=== PATIENT | female | born 1965 | race Caucasian/White ===

== ENCOUNTER 2017-11-14 11:58 | Emergency (ER) | payer OTHER ==
[2017-11-14] MEDS ORDERED: Ondansetron ODT 4 MG TAB ONE (12:15)
[2017-11-14 12:39] LABS: Bilirubin Negative (Negative); Blood, Urine Trace (Negative); Clarity Cloudy (Clear); Glucose, Urine (Dipstick) Negative (Negative); Leukocyte Large (Negative); Nitrite Negative (Negative); Protein, Urine (Dipstick) Negative (Neg-Trace); Urobilinogen 0.2 mg/dL (0.2-1.0)
[2017-11-14 12:39] LABS: #Lymphocytes 1.2 thou/uL (1.20-3.40); #Monocytes 0.6 thou/uL (0.11-0.59); #Neutrophils 6.8 thou/uL (1.40-6.50); %Basophils 0.5 % (0.0-1.0); %Eosinophils 0.3 % (0.0-10.0); %Lymphocytes 14.2 % (21.0-51.0); %Monocytes 6.8 % (0.0-10.0); %Neutrophils 78.3 % (42.0-75.0); Hemoglobin 13.4 g/dL (12.0-16.0); Mean Corpuscular HGB CONC 35.6 g/dL (32.0-36.0); Mean Corpuscular Hemoglobin 29.3 pg (27.0-31.0); Mean Corpuscular Volume 82.4 fL (78.0-98.0); Mean Platelet Volume 5.8 fL (7.4-10.4); Platelet Count 97 thou/uL (130-400); RBC Distribution Width 11.7 % (11.5-14.5); Red Blood Cell (RBC) Count 4.59 mill/uL (4.20-5.40); White Blood Cell (WBC) Count 8.7 thou/uL (4.8-10.8)
[2017-11-14 12:40] LABS: Bacteria/HPF 1+ HPF (None Seen); Crystals/HPF None Seen HPF (Negative); Hyaline Casts/LPF NONE SEEN LPF (0-3 Hyaline); Other Casts/LPF None Seen LPF (0-3 Hyaline); Oval Fat Bodies/HPF None Seen HPF (None Seen); Renal Epithelial None Seen HPF (0-3); Sperm/HPF None Seen HPF (None Seen); Squamous Epithelial 0-3 HPF (0-3); Transitional Epithelial NONE SEEN HPF (0-3); Trichomonas/HPF None Seen HPF (None Seen); Yeast-All Forms None Seen HPF (None Seen)
[2017-11-14] MEDS ORDERED: Sulfameth/Trimethoprim DS 800-160mg TAB ONE (12:50)
[2017-11-14 12:57] LABS: PLT Morphology Comment Appears Decreased; RBC Morphology Normal
== END 2017-11-14 12:50 ==
LOC: BURERS 11:58
DX: N39.0 Urinary tract infection, site not specified (principal); J44.9 Chronic obstructive pulmonary disease, unspecified; F31.9 Bipolar disorder, unspecified; F43.10 Post-traumatic stress disorder, unspecified; Z79.899 Other long term (current) drug therapy
CPT/HCPCS: 36415; 81003; 81015; 85025; 87086; 87804; 99283; Q0162

== ENCOUNTER 2020-02-29 18:24 | Emergency (ER) | payer OTHER, SELFPAY ==
[2020-03-01 10:59] LABS: SARS-CoV-2 MS2 Positive; SARS-CoV-2 N Gene Negative; SARS-CoV-2 S Gene Negative; SARS-CoV-2 by NAA Not Detected (NotDetected); SARS-CoV-2 orf1ab Negative
== END 2020-02-29 19:30 | disposition home or self-care (01) ==
LOC: BURERS 18:24
DX: R05 Cough (principal); J44.9 Chronic obstructive pulmonary disease, unspecified; B19.20 Unspecified viral hepatitis C without hepatic coma; B20 Human immunodeficiency virus [HIV] disease; F31.9 Bipolar disorder, unspecified; F43.10 Post-traumatic stress disorder, unspecified; Z87.891 Personal history of nicotine dependence; Z20.828 Contact with and (suspected) exposure to other viral communicable diseases; Z79.899 Other long term (current) drug therapy
CPT/HCPCS: 87635; 99283; U0003

== ENCOUNTER 2020-03-20 10:31 | Emergency (ER) | payer SELFPAY ==
[2020-03-20 12:05] LABS: Bilirubin Moderate (Negative); Blood, Urine Trace (Negative); Clarity Cloudy (Clear); Glucose, Urine (Dipstick) Negative (Negative); Ketone, Urine 40 mg/dL (Negative); Leukocyte Trace (Negative); Nitrite Negative (Negative); Protein, Urine (Dipstick) 30 mg/dL (Neg-Trace); pH, Urine 5.5 (5.0-9.0)
[2020-03-20 12:07] LABS: Specific Gravity, Urine 1.029 (1.002-1.036)
[2020-03-20 12:12] LABS: WBC/HPF 21-50 HPF (0-3)
[2020-03-20 12:13] LABS: Bacteria/HPF 2+ HPF (None Seen); Calcium Oxalate Crystals 1+ HPF (None Seen); Mucous/LPF 1+ LPF (<2+)
[2020-03-20 12:15] LABS: ALT (SGPT) 18 U/L (8-55); AST (SGOT) 18 U/L (5-34); Albumin 3.9 g/dL (3.5-5.0); Alkaline Phosphatase 82 U/L (40-110); Anion Gap 14 mmol/L (10-20); BUN (Urea Nitrogen) 15 mg/dL (9.8-20.1); Calc. Creatinine Clearance 0 mL/min (70-130); Calcium 9.3 mg/dL (7.8-10.44); Carbon Dioxide 28 mmol/L (22-29); Chloride 101 mmol/L (98-107); Estimated GFR-MDRD 49; Globulin 4.1 g/dL (2.4-3.5); Glucose 90 mg/dL (70-105); Potassium 3.8 mmol/L (3.5-5.1); Sodium 139 mmol/L (136-145)
[2020-03-20 12:17] LABS: Hemoglobin 16.7 g/dL (12.0-16.0); Mean Corpuscular HGB CONC 32.5 g/dL (32.0-36.0); Mean Corpuscular Hemoglobin 29.6 pg (27.0-31.0); Mean Corpuscular Volume 91.2 fL (78.0-98.0); Mean Platelet Volume 8.6 fL (7.4-10.4); Platelet Count 108 thou/uL (130-400); RBC Distribution Width 13.3 % (11.5-14.5); Red Blood Cell (RBC) Count 5.64 mill/uL (4.20-5.40)
[2020-03-20] MEDS ORDERED: Ondansetron PF 4 MG/2 ML Vial ONE (12:20)
[2020-03-20 12:25] LABS: #Basophils 0.1 thou/uL (0.0-0.2); #Lymphocytes 1.3 thou/uL (1.20-3.40); #Monocytes 0.3 thou/uL (0.11-0.59); #Neutrophils 3.3 thou/uL (1.40-6.50); %Basophils 1.3 % (0.0-1.0); %Eosinophils 0.7 % (0.0-10.0); %Lymphocytes 25.6 % (21.0-51.0); %Monocytes 6.5 % (0.0-10.0); %Neutrophils 65.9 % (42.0-75.0); MDiff Complete? YES; Platelet Morphology Comment Appears Decreased; Polychromasia SLIGHT = 2-3 cells (100X) (0-2/hpf)
== END 2020-03-20 14:24 | disposition home or self-care (01) ==
LOC: BURERS 10:31
DX: E86.0 Dehydration (principal); R11.2 Nausea with vomiting, unspecified; J44.9 Chronic obstructive pulmonary disease, unspecified; I10 Essential (primary) hypertension; F31.9 Bipolar disorder, unspecified; F43.10 Post-traumatic stress disorder, unspecified; F17.210 Nicotine dependence, cigarettes, uncomplicated; Z79.899 Other long term (current) drug therapy
CPT/HCPCS: 36415; 80053; 81003; 81015; 85025; 87086; 96374; 99406; J2405

== ENCOUNTER 2020-09-27 10:45 | Outpatient (CLI) | payer OTHER | END 2020-09-27 10:46 | disposition home or self-care (01) | LOC: BURRAD 10:45 | PROVIDERS: ATTEND Nurse Practitioner Family | DX: R13.10 Dysphagia, unspecified (principal); R63.4 Abnormal weight loss; J44.9 Chronic obstructive pulmonary disease, unspecified | CPT/HCPCS: 70360; 71046 ==

== ENCOUNTER 2020-12-11 09:38 | Emergency (ER) | payer OTHER, SELFPAY ==
[2020-12-11] MEDS ORDERED: Magnesium 2 GM/50 ML BAG (IN WATER) ONE (10:10)
[2020-12-11 10:44] LABS: #Lymphocytes 0.6 thou/uL (1.20-3.40); #Monocytes 0.2 thou/uL (0.11-0.59); #Neutrophils 4.3 thou/uL (1.40-6.50); %Basophils 0.4 % (0.0-1.0); %Eosinophils 0.1 % (0.0-10.0); %Monocytes 4.3 % (0.0-10.0); %Neutrophils 84.2 % (42.0-75.0); Hemoglobin 16.9 g/dL (12.0-16.0); Mean Corpuscular HGB CONC 33.2 g/dL (32.0-36.0); Mean Corpuscular Hemoglobin 28.9 pg (27.0-31.0); Mean Corpuscular Volume 87.1 fL (78.0-98.0); Mean Platelet Volume 7.2 fL (7.4-10.4); Platelet Count 149 thou/uL (130-400); RBC Distribution Width 13.8 % (11.5-14.5); Red Blood Cell (RBC) Count 5.84 mill/uL (4.20-5.40); White Blood Cell (WBC) Count 5.2 thou/uL (4.8-10.8)
[2020-12-11 10:55] LABS: ALT (SGPT) 12 U/L (8-55); AST (SGOT) 31 U/L (5-34); Albumin 2.8 g/dL (3.5-5.0); Alkaline Phosphatase 65 U/L (40-110); Anion Gap 15 mmol/L (10-20); BUN (Urea Nitrogen) 35 mg/dL (9.8-20.1); Calc. Creatinine Clearance 0 mL/min (70-130); Calcium 8.9 mg/dL (7.8-10.44); Carbon Dioxide 33 mmol/L (22-29); Chloride 82 mmol/L (98-107); Globulin 4.3 g/dL (2.4-3.5); Glucose 92 mg/dL (70-105); Potassium 3.3 mmol/L (3.5-5.1); Protein, Total 7.1 g/dL (6.0-8.3); Sodium 127 mmol/L (136-145)
[2020-12-11 11:14] LABS: CKMB 1.6 ng/mL (0-6.6)
[2020-12-11] MEDS ORDERED: Azithromycin 500 MG VIAL ONE (11:28)
[2020-12-11] MEDS ORDERED: cefTRIAXone\\ROCEPHIN 1 GM VIAL ONE ×2 (11:28→12:00)
[2020-12-11] MEDS ORDERED: Aspirin 325 MG TAB ONE (11:29)
[2020-12-11] MEDS ORDERED: Sodium Chloride 0.9% 100 ML ONE (11:29)
[2020-12-11 11:49] LABS: Magnesium 2.3 mg/dL (1.6-2.6)
[2020-12-11] MEDS ORDERED: Dexamethasone 10 MG/ML VIAL ONE (12:12)
[2020-12-11] MEDS ORDERED: Norepinephrine 4 MG/4 ML VIAL ONE (12:28)
[2020-12-11 13:41] LABS: SARS-CoV-2 NAA Rapid Test Not Detected (NotDetected)
[2020-12-11 14:22] LABS: Troponin I 0.069 ng/mL (< 0.028)
[2020-12-11 16:49] LABS: Bilirubin Negative (Negative); Blood, Urine Trace (Negative); Clarity Clear (Clear); Glucose, Urine (Dipstick) Negative (Negative); Ketone, Urine Negative (Negative); Leukocyte Negative (Negative); Nitrite Negative (Negative); Protein, Urine (Dipstick) Negative (Neg-Trace); Urobilinogen 0.2 mg/dL (Less than 2)
[2020-12-11 17:06] LABS: Amphetamine Not Detected (NotDetected); Barbiturates Screen Not Detected (NotDetected); Benzodiazepine Screen Not Detected (NotDetected); Cocaine Metabolite Screen Detected (NotDetected); Methadone Not Detected (NotDetected); Methamphetamine Not Detected (NotDetected); Opiate Screen Not Detected (NotDetected); Oxycodone Screen Not Detected (NotDetected); Phencyclidine (PCP) Not Detected (NotDetected); THC/Cannabinoid Screen Detected (NotDetected); Tricyclic Screen Not Detected (NotDetected)
[2020-12-11 17:07] LABS: Medtox Control Line Valid? VALID (VALID)
[2020-12-11 17:08] LABS: Other Microscopic Description Less than 2 mL rec'd
[2020-12-11 17:29] LABS: Base Excess-Venous 3.9 mmol/L (-2.0 to 3.0); CO2 Tension (PvCO2) 49.8 mmHg (42.0-51.0); Calcium, Ionized 1.12 mmol/L (1.15-1.33); Chloride 91 mmol/L (98-107); Hemoglobin - Calc 14.6 g/dL (12.0-16.0); Potassium 3.2 mmol/L (3.5-5.1); Sodium 132 mmol/L (138-145); T. Carbon Dioxide 31.5 mmol/L (22.0-28.0); vO2 Saturation-calc 73.7 % (60.0-85.0)
[2020-12-11] MEDS ORDERED: Hydrocortisone Sod Succ/PF 100 mg/2 ml Vial IVP SCH (17:45)
[2020-12-11] MEDS ORDERED: Calcium Gluc 4.6 MEQ/10 ML (100 MG/ML) ONE (18:04)
[2020-12-11] MEDS ORDERED: Potassium Chloride 20 MEQ/100 ML PREMIX BAG ONE (18:27)
[2020-12-11] MEDS ORDERED: Magnesium Citrate 300 ML BOT PO SCH (19:15)
[2020-12-11] MEDS ORDERED: Ondansetron PF 4 MG/2 ML Vial ONE (23:07)
[2020-12-12] MEDS ORDERED: Sulfameth/Trimethoprim DS 800-160mg TAB ONE (06:11)
== END 2020-12-12 07:00 | disposition short-term general hospital (02) ==
LOC: BURERS 09:38
DX: A41.9 Sepsis, unspecified organism (principal); R65.20 Severe sepsis without septic shock; J18.9 Pneumonia, unspecified organism; E87.1 Hypo-osmolality and hyponatremia; F17.210 Nicotine dependence, cigarettes, uncomplicated; Z20.822 Contact with and (suspected) exposure to COVID-19; Z21 Asymptomatic human immunodeficiency virus [HIV] infection status
CPT/HCPCS: 36415; 36556; 70450; 71045; 80053; 80306; 81003; 81015; 82330; 82553; 82803; 83605; 83735; 84443; 84484; 85025; 87040; 87077; 87086; 87186; 93005; 96365; 96366; 96367; 96375; J0456; J0696; J1100; J2001; J2405; J3475; J3480; J3490; U0002

== ENCOUNTER 2020-12-22 16:14 | Emergency (ER) | payer OTHER ==
[2020-12-22 17:07] LABS: #Lymphocytes 0.9 thou/uL (1.20-3.40); #Monocytes 0.2 thou/uL (0.11-0.59); #Neutrophils 3.4 thou/uL (1.40-6.50); %Basophils 0.5 % (0.0-1.0); %Lymphocytes 19.6 % (21.0-51.0); %Monocytes 5.4 % (0.0-10.0); %Neutrophils 74.6 % (42.0-75.0); Hemoglobin 14.3 g/dL (12.0-16.0); Mean Corpuscular HGB CONC 33.2 g/dL (32.0-36.0); Mean Corpuscular Volume 90.3 fL (78.0-98.0); Mean Platelet Volume 5.8 fL (7.4-10.4); Platelet Count 253 thou/uL (130-400); RBC Distribution Width 15.1 % (11.5-14.5); Red Blood Cell (RBC) Count 4.77 mill/uL (4.20-5.40); White Blood Cell (WBC) Count 4.5 thou/uL (4.8-10.8)
[2020-12-22 17:22] LABS: ALT (SGPT) 21 U/L (8-55); AST (SGOT) 38 U/L (5-34); Albumin 2.8 g/dL (3.5-5.0); Alkaline Phosphatase 76 U/L (40-110); Anion Gap 11 mmol/L (10-20); BUN (Urea Nitrogen) 33 mg/dL (9.8-20.1); Bilirubin, Total 0.6 mg/dL (0.2-1.2); Calc. Creatinine Clearance 0 mL/min (70-130); Calcium 8.9 mg/dL (7.8-10.44); Carbon Dioxide 29 mmol/L (22-29); Chloride 100 mmol/L (98-107); Globulin 3.2 g/dL (2.4-3.5); Glucose 82 mg/dL (70-105); Potassium 4.3 mmol/L (3.5-5.1); Sodium 136 mmol/L (136-145)
== END 2020-12-22 18:05 | disposition home or self-care (01) ==
LOC: BURERS 16:14
DX: R60.0 Localized edema (principal); E88.09 Other disorders of plasma-protein metabolism, not elsewhere classified; J44.9 Chronic obstructive pulmonary disease, unspecified; F17.210 Nicotine dependence, cigarettes, uncomplicated; Z21 Asymptomatic human immunodeficiency virus [HIV] infection status; Z79.899 Other long term (current) drug therapy
CPT/HCPCS: 36415; 80053; 83880; 84443; 84484; 85025; 85379; 93005